=== PATIENT | female | born 1970 | race Caucasian/White ===

== ENCOUNTER 2018-02-21 15:18 | Emergency (ER) | payer OTHER ==
[~2018-02-21] VITALS: Ht 162.6 cm; Wt 83.6 kg
[~2018-02-21 15:18] MED LIST: ASPIR-TRIN325 M1 PO; BENADRYL25 MG PO; KEFLEX500 MG PO; NEURONTIN300 MG PO; NOHOMEMEDS; PRILOSEC40 MG PO; RELPAX40 MG PO; XARELTO20 MG PO; ZANTAC150 MG PO; ZESTRIL,PRINIVI40 MG PO
[2018-02-21 15:39] VITALS: BP 157/106
[2018-02-21] MEDS ORDERED: MOTRIN600 MG PO (17:10)
== END 2018-02-21 18:32 | disposition home or self-care (01) ==
LOC: EME 15:18
DX: S86.011A Strain of right Achilles tendon, initial encounter (principal); S90.511A Abrasion, right ankle, initial encounter; W22.8XXA Striking against or struck by other objects, initial encounter; Y99.0 Civilian activity done for income or pay; Y92.512 Supermarket, store or market as the place of occurrence of the external cause; F17.200 Nicotine dependence, unspecified, uncomplicated
CPT/HCPCS: 73630; 99281; 99284